=== PATIENT | female | born 1950 | race Caucasian/White ===

== ENCOUNTER 2018-11-08 09:41 | Day surgery (SDC) | payer OTHER ==
[2018-11-03 11:06] VITALS: BMI 18.2
[2018-11-08] MEDS ORDERED: LIDOCAINE HCL 2% (20ML MULTI-DOSE VIAL) NR ONE (10:42)
[2018-11-08] MEDS ORDERED: LIDOCAINE HCL 2% (50ML VIAL) INF ONE (11:35)
[2018-11-08 12:10] VITALS: TEMP 98.2
[2018-11-08 13:09] VITALS: BP 122/74; PULSE 72
[2018-11-08] MEDS ORDERED: ACETAMINOPHEN 325 MG TABLET (FP) PO PRN (15:22)
[2018-11-08] MEDS ORDERED: LACTATED RINGERS SOLUTION 1,000 ML IV SCH (15:30)
--- NOTE | 2018-11-09 18:47 | OP ---
DATE OF OPERATION: 11/08/2018 PREOPERATIVE DIAGNOSIS: Left carpal tunnel syndrome POSTOPERATIVE DIAGNOSIS: Left carpal tunnel syndrome. OPERATIVE PROCEDURE: Left carpal tunnel release. SURGEON: Jarvis Warren MD ANESTHESIA: Local with sedation. COMPLICATIONS: None. ESTIMATED BLOOD LOSS: Minimal. INDICATION FOR PROCEDURE: The patient is a 68-year-old female with the above finding, indicated for operative treatment. The risks, benefits and alternatives were discussed with the patient at length and proper informed consent was obtained. DESCRIPTION OF PROCEDURE: After proper identification of the patient and the correct operative site, the patient was brought to the operating room and placed supine on the operating table with all prominences well padded. Sedation and local anesthesia were given. The left upper extremity was prepped and draped in the usual sterile fashion. A well-padded tourniquet was placed after sterile prep. An Esmarch bandage was used to exsanguinate the left upper extremity and the tourniquet was inflated to 250 mmHg. A longitudinal incision was made in the proximal aspect of the palm. The incision was taken sharply through the skin with blunt and sharp dissection through the subcutaneous tissues. The palmar fascia was divided longitudinally. The transcarpal ligament was divided longitudinally along with the distal 4 cm of the antebrachial fascia under direct visualization with loupe magnification. This provided complete release of the median nerve at the wrist. The wound was irrigated and repaired with a 5-0 fast absorbing gut suture. Sterile dressings were applied. The patient was brought to the recovery room in stable condition. She tolerated the procedure well. Gardenia KLEIN/[id number]
== END 2018-11-08 13:11 | disposition home or self-care (01) ==
LOC: FASU 09:41
PROVIDERS: ATTEND Orthopaedic Surgery Hand Surgery
PROC: 01N50ZZ Release Median Nerve, Open Approach (ICD-10-PCS; principal; 2018-11-08 11:00)
DX: G56.02 Carpal tunnel syndrome, left upper limb (principal)